=== PATIENT | male | born 1985 | race Caucasian/White ===

== ENCOUNTER 2018-11-29 21:27 | Emergency (ER) | payer MEDICAID ==
[~2018-11-29] VITALS: Ht 195.6 cm; Wt 134.8 kg
[~2018-11-29 21:27] MED LIST: CLIN-96 PO; FLO0.4C PO; ONDA4TAB6 PO; PRED50TA PO; SACC250C PO
[2018-11-29 21:32] VITALS: BP 162/95
[2018-11-29] MEDS ORDERED: methylPREDNISolone sod succ 125mg/2ml vial IV ONE (23:25)
[2018-11-29] MEDS ORDERED: normal saline 1000ML IV soln IVB ONE (23:25)
[2018-11-29] MEDS ORDERED: NORMAL SALINE IV ONE (23:25)
[2018-11-29] MEDS ORDERED: METHYLPREDNISOLONE SOD SUC IV ONE (23:25)
[2018-11-29 23:38] LABS: BASOPHILS # (AUTO) 0.1 X10'3 (0-0.2); BASOPHILS % (AUTO) 0.6 % (0-1); EOSINOPHILS # (AUTO) 0.3 X10'3 (0-0.9); EOSINOPHILS % (AUTO) 2.2 % (0-6); HEMATOCRIT 41.5 % (42.0-52.0); HEMOGLOBIN 14.1 g/dl (14.0-17.9); LYMPHOCYTES # (AUTO) 4.1 X10'3 (1.1-4.8); LYMPHOCYTES % (AUTO) 33.8 % (21-51); MEAN CORPUSCULAR HEMOGLOBIN 30.1 PG (27.0-31.0); MEAN CORPUSCULAR VOLUME 88.3 FL (78-98); MEAN PLATELET VOLUME 9.7 FL (7.4-10.4); MONOCYTES # (AUTO) 0.9 X10'3 (0-0.9); MONOCYTES % (AUTO) 7.2 % (2-12); NEUTROPHILS # (AUTO) 6.8 X10'3 (1.8-7.7); NEUTROPHILS % (AUTO) 56.2 % (42-75); PLATELET COUNT 235 X10'3 (140-440); RED CELL DISTRIBUTION WIDTH 13.8 % (11.5-14.5)
[2018-11-29 23:52] LABS: ALANINE AMINOTRANSFERASE 27 U/L (12-78); ALBUMIN 3.7 G/DL (3.4-5.0); ALBUMIN/GLOBULIN RATIO 0.9 (1.1-1.5); ALKALINE PHOSPHATASE 83 IU/L (46-116); ANION GAP 8 (8-16); ASPARTATE AMINO TRANSFERASE 10 U/L (10-37); BILIRUBIN,TOTAL 0.2 MG/DL (0.1-1.0); BLOOD UREA NITROGEN 7 MG/DL (7-18); BUN/CREATININE RATIO 6.9 (5.4-32.0); CHLORIDE 106 MMOL/L (99-107); CREATININE 1.02 MG/DL (0.60-1.10); GLUCOSE 132 MG/DL (70-104); MAGNESIUM 2.2 MG/DL (1.5-2.4); PHOSPHORUS 3.1 MG/DL (2.3-4.5); POTASSIUM 3.5 MMOL/L (3.5-5.1); SODIUM 140 MMOL/L (135-145); TOTAL CARBON DIOXIDE 25.8 MMOL/L (24-32); TOTAL PROTEIN 7.7 G/DL (6.4-8.2); eGFR 85 ML/MIN
== END 2018-11-30 00:35 | disposition left against medical advice (07) ==
LOC: ER 21:28
DX: G35 Multiple sclerosis (principal); Z88.0 Allergy status to penicillin; Z88.1 Allergy status to other antibiotic agents; Z79.2 Long term (current) use of antibiotics; Z79.899 Other long term (current) drug therapy
CPT/HCPCS: 36415; 80053; 83735; 84100; 85025; 99283; J2930; J7030

== ENCOUNTER 2022-11-29 16:42 | Emergency (ER) | payer MEDICAID ==
[~2022-11-29] VITALS: Ht 190.5 cm; Wt 142.2 kg
[~2022-11-29 16:42] MED LIST changes: -CLIN-96 PO; +CLIN-97 PO; +IBUP-1986 PO
[2022-11-29] MEDS ORDERED: SUMA100T16 PO (17:59)
[2022-11-29] MEDS ORDERED: PRED10TA PO (17:59)
[2022-11-29] MEDS ORDERED: IBUP-1986 PO (18:00)
[2022-11-29] MEDS ORDERED: ketorolac trometh inj. 60 MG/2 ML VIAL IM ONE (18:05)
[2022-11-29 18:13] VITALS: BP 159/108
== END 2022-11-29 18:18 | disposition home or self-care (01) ==
LOC: ER 16:42
DX: G43.909 Migraine, unspecified, not intractable, without status migrainosus (principal); G35 Multiple sclerosis; Z88.0 Allergy status to penicillin; Z88.1 Allergy status to other antibiotic agents
CPT/HCPCS: 96372; 99283; J1885

== ENCOUNTER 2025-05-11 15:26 | Emergency (ER) | payer MEDICAID ==
[~2025-05-11] VITALS: Ht 195.6 cm; Wt 155.9 kg
[~2025-05-11 15:26] MED LIST changes: +CLIN-224 PO; -CLIN-97 PO; -FLO0.4C PO; +PRED10TA PO; +SUMA100T16 PO; +TAMS-55 PO
--- NOTE | 2025-05-11 16:54 | RADIOLOGY REPORT ---
EXAM: DI KNEE, COMP 4 VW MIN INDICATION: KNEE PAIN TECHNIQUE: 3 views of the right knee COMPARISON: KNEE, COMP 4 VW MIN on DOS: 01/06/22 FINDINGS/IMPRESSION: No radiographic evidence of an acute osseous abnormality. There is no acute fracture, osseous malalignment, or aggressive focal osseous lesion. [id number] medial weight-bearing compartment joint space loss.
--- NOTE | 2025-05-11 16:55 | RADIOLOGY REPORT ---
EXAM: DI ANKLE, COMPLETE(3VW MIN) INDICATION: ANKLE PAIN TECHNIQUE: 3 views of the right ankle COMPARISON: None FINDINGS/IMPRESSION: No radiographic evidence of an acute osseous abnormality. There is no acute fracture, osseous malalignment, or aggressive focal osseous lesion. Well corticated ossicle inferior to the medial malleolus. Likely compatible with prior deltoid ligamentous avulsive injury. Mild bilateral malleolar soft tissue swelling. Achilles insertional enthesophyte. No joint effusion.
--- NOTE | 2025-05-11 17:07 | Physician Documentation ---
History of Present Illness ~ Chief Complaint: Ankle pain Stated Complaint: ANKLE PAIN Time Seen by MD: 15:38 Primary Medical Doctor: [facility] HPI 32-year-old male had a mechanical fall twisting his right ankle and landed on his right knee. Noted mild antalgic gait. No gross deformity. Swelling and tenderness to the right ankle and right knee. Tetanus witin 5 years: No (unk) Medication Reconciliation Allergies: Coded Allergies: Penicillins (Verified Allergy, Unknown, 05/11/25) amoxicillin (Verified Allergy, Unknown, 05/11/25) Scheduled Clindamycin HCL* (Clindamycin HCL*), 1 CAP PO Q6H Ibuprofen (Ibuprofen), 1 TAB PO Q8H Ibuprofen (Ibuprofen), 1 TAB PO Q8H Prednisone (Prednisone), 1 TABLET PO DAILY Prednisone (Prednisone), 0 PO DAILY Saccharomyces Boulardii (Florastor), 250 MG PO DAILY Sumatriptan Succinate (Sumatriptan Succinate), 1 TAB PO UD Tamsulosin Hcl* (Flomax*), 1 CAP PO DAILY Scheduled PRN Ondansetron Hcl (Zofran), 1 TAB PO Q6H PRN for nausea/vomiting Past Medical History Past Medical History: Headache, Migraine, Multiple Sclerosis, *MUSCULOSKELETAL* Past Surgical History: no surgical history Alcohol Use: Occasionally Drug Use: none Lives with: Family Lives In: Home Occupation: employed Review of Systems All Other Systems at this time: Reviewed and Negative Musculoskeletal: Reports: pain, swelling, joint pain, muscle pain Physical Exam Vital Signs: RN Vital Signs have been reviewed: Yes, Temperature: 98.6, Source: Oral, Heart Rate: 124, Respiratory Rate: 20, BP: 157/103, Pulse Oximetry: 97, Weight: 155.900 Oxygen Flow Rate: 0 General Appearance: alert, WD/WN Knees: limited ROM, pain, swelling Ankles: limited ROM, pain, soft tissue tenderness Distal Function: no motor deficit Skin: normal color Lymphatic: normal inspection Neurologic: oriented x4 Psychiatric: normal mood/affect Progress Results/Orders Results/Orders Vital Signs 05/11/25 15:34 Temp 98.6 Pulse 124 Resp 20 B/P (MAP) 157/103 Pulse Ox 97 O2 Flow Rate 0 Medical Decision Making Additional information obtaine: N/A Findings Examination and history warrant x-ray imaging to evaluate for fracture or dislocation. X-ray imaging is reassuring as read by radiologist. Suspect soft tissue injuries requiring immobilization. General Diff Dx:Considerations: Include: Abrasion, Contusion, Fracture, Hematoma, Sprain Knee Diff Dx:Considerations: Include: Abrasion, Arthritis, Contusion, Hematoma, Meniscus injury, Sprain, Sprain-MCL, Sprain-LCL, Sprain-ACL, Sprain-PCL Ankle Diff Dx:Considerations: Include: Abrasion, Arthritis, Contusion, DJD, Fracture-metatarsal, Fracture-fibula, Fracture-tarsal, Fracture-tibia, Malunion, Sprain Foot Diff Dx:Considerations: Include: Other Toe Diff Dx:Considerations: Include: Other (Contributory noncontributory) Departure Disposition: HOME / SELF CARE / HOMELESS Impression: Primary Impression: Sprain of ankle Qualified Codes: S93.401A - Sprain of unspecified ligament of right ankle, initial encounter Additional Impression: Knee sprain Qualified Codes: S83.91XA - Sprain of unspecified site of right knee, initial encounter Condition: Improved Discharge Instructions: Ankle Sprain Additional Instructions: X-rays obtained tonight in the emergency department reassuring for no fracture or dislocation. Please wear ankle boot for comfort and support follow up with your primary care physician. Take ibuprofen and/or Tylenol for discomfort. Thank you for visiting [facility]. Referrals: NO PRIMARY CARE PROVIDER (PCP) Education Educated: Patient Educated regarding: diagnosis, treatment, prognosis, need for follow up Signature Scribe Signature: . Attestation: . MINH HOLLY PAC May 11, 2025 17:07
[2025-05-11 17:45] VITALS: BP 132/79; PULSE 78; RESP 16; TEMP 98.6; O2SAT 99
== END 2025-05-11 17:46 | disposition home or self-care (01) ==
LOC: ER 15:28
DX: S83.91XA Sprain of unspecified site of right knee, initial encounter (principal); S93.401A Sprain of unspecified ligament of right ankle, initial encounter; G43.909 Migraine, unspecified, not intractable, without status migrainosus; Z72.89 Other problems related to lifestyle; Z88.1 Allergy status to other antibiotic agents; Z79.899 Other long term (current) drug therapy; Z88.0 Allergy status to penicillin; X50.1XXA Overexertion from prolonged static or awkward postures, initial encounter; Y93.89 Activity, other specified; Y92.89 Other specified places as the place of occurrence of the external cause; Y99.8 Other external cause status
CPT/HCPCS: 73564; 73610; 99284; L4360; A6449